=== PATIENT | male | born 1980 | race Caucasian/White ===

== ENCOUNTER 2020-11-05 17:20 | Emergency (ER) | payer OTHER ==
[~2020-11-05] VITALS: Ht 190.5 cm; Wt 79.0 kg
[2020-11-05] MEDS ORDERED: TETanus/Pertussis (Acell)/Diphther VAC/PF (Tdap-Adult) 0.5ml syringe IMVAC ONE (18:30)
[2020-11-05] MEDS ORDERED: LIDOcaine 1% W/epiNEPHrine 1:200,000 10ml vial IJ ONE (18:30)
[2020-11-05] MEDS ORDERED: HYDROcodone/acetaminophen 5mg/325mg tablet PO ONE (18:30)
[2020-11-05] MEDS ORDERED: HYDR-3965 PO (20:02)
[2020-11-05 20:06] VITALS: BP 128/95
== END 2020-11-05 20:08 | disposition home or self-care (01) ==
LOC: ER 17:20
DX: S61.012A Laceration without foreign body of left thumb without damage to nail, initial encounter (principal); S61.211A Laceration without foreign body of left index finger without damage to nail, initial encounter; Z79.899 Other long term (current) drug therapy; Z20.3 Contact with and (suspected) exposure to rabies; X58.XXXA Exposure to other specified factors, initial encounter; Y93.89 Activity, other specified; Y92.89 Other specified places as the place of occurrence of the external cause; Y99.8 Other external cause status
CPT/HCPCS: 12002; 90471; 99283; 99284

== ENCOUNTER 2021-01-09 22:36 | Emergency (ER) | payer OTHER ==
[~2021-01-09] VITALS: Ht 190.5 cm; Wt 84.1 kg
[2021-01-09 22:39] VITALS: BP 142/89
[2021-01-09] MEDS ORDERED: ketorolac trometh. 30mg/ml inj. IM ONE (22:50)
[2021-01-09] MEDS ORDERED: METH4TAB81 PO (22:53)
[2021-01-09] MEDS ORDERED: CYCL-394 PO (22:53)
== END 2021-01-09 23:30 | disposition home or self-care (01) ==
LOC: ER 22:37
DX: S39.012A Strain of muscle, fascia and tendon of lower back, initial encounter (principal); G89.29 Other chronic pain; Z79.899 Other long term (current) drug therapy; X58.XXXA Exposure to other specified factors, initial encounter; Y93.89 Activity, other specified; Y92.89 Other specified places as the place of occurrence of the external cause; Y99.8 Other external cause status
CPT/HCPCS: 96372; 99283; J1885